=== PATIENT | male | born 1940 | race Caucasian/White ===

== ENCOUNTER → 2017-01-27 | Outpatient (CLI) | payer OTHER, MEDICARE ==
[~2017-01-27] MED LIST: GADOBUTROL 10 ML VIAL IVP ONE
== END ==
LOC: FIMAGING 14:43
PROVIDERS: ATTEND Otolaryngology
DX: H91.92 Unspecified hearing loss, left ear (principal); Z85.238 Personal history of other malignant neoplasm of thymus
CPT/HCPCS: 70553; 71020; A9585

== ENCOUNTER 2017-01-29 19:25 | Emergency (ER) | payer OTHER, MEDICARE ==
--- NOTE | 2017-01-29 20:05 | EDPHY ---
H & P Smoking Status: Never smoked Time Seen by Provider: 01/29/17 19:46 HPI/ROS: CHIEF COMPLAINT: Right thumb laceration HISTORY OF PRESENT ILLNESS: 76-year-old male with up-to-date tetanus arrives via private vehicle, right-hand dominant, complaining of acute right thumb proximal phalanx laceration when a glass broke in his hand. 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 Appears to be in no acute distress. 2) HEAD: Normocephalic 3) HEENT: sclera anicteric 4) LUNGS: Breathing comfortably. 5) SKIN: on the right thumb proximal phalanx he has a 2.5 cm well-demarcated laceration 6) MUSCULOSKELETAL: Flexor extensor abduction abduction intact no deficits 7) NEUROLOGIC: Full sensation two-point discrimination intact (JaceWill Linda) Constitutional: Initial Vital Signs Temperature (C) 36.6 C 01/29/17 19:34 Heart Rate 100 01/29/17 19:34 Respiratory Rate 20 01/29/17 19:34 Blood Pressure 166/109 H 01/29/17 19:34 O2 Sat (%) 99 01/29/17 19:34 O2 Delivery Mode Room Air Allergies/Adverse Reactions: No Known Allergies Allergy (Unverified 01/29/17 19:38) Home Medications: Medication Instructions Recorded Aspirin 81mg (*) 01/29/17 Losartan Potassium 01/29/17 MDM/Departure - MDM Procedures: Procedure: Laceration repair. I explained the indications, risks and benefits for both laceration repair and anesthetic administration. Verbal consent was obtained from the patient and parent. The laceration on the location was anesthetized using 0.5% bupivicaine without epinephrine digital nerve block. After anesthetic administered the patient was observed for a period of time and had no apparent adverse effects. The wound was cleaned, prepped, draped in normal sterile fashion and explored to its base. No foreign body seen, no foreign bodies palpated. There were no deep structures involved. No tendon injury was identified. The wound was repaired with 7 simple interrupted 5 O Ethilon sutures . The wound repair was simplecomplex. The procedure was performed by myself. Patient has been informed that scarring will occur, although efforts have been made to minimize this. Procedure: Splint A Velcro thumb spica splint was applied by ER driver license technician. After application of the splint I returned and re-examined the patient. The splint was adequately immobilizing the joint and distal to the splint the patient's circulation and sensation were intact. Patient shows no signs of compartment syndrome. Was given orthopedic precautions. (Will Mccormick) ED Course/Re-evaluation: I reviewed this patient's x-rays with him. 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 I have referred the patient to [facility] hand surgery follow-up. Care of patient under supervision of secondary supervising physician Dr Rodriges . (Will Mccormick) The patient was evaluated and managed by the physician's general office assistant. My cosignature indicates that I reviewed the chart and I agree with the findings and plan of care as documented. I am the secondary supervising physician. ( Jo Rodriges) - Depart Disposition: Home, Routine, Self-Care Clinical Impression: Laceration of thumb Qualifiers: Encounter type: initial encounter Damage to nail status: without damage Foreign body presence: without foreign body Laterality: right Qualified Code(s) : S61.011A - Laceration without foreign body of right thumb without damage to nail, initial encounter Condition: Good Instructions: Care For Your Stitches (ED), Laceration (ED) Referrals: Guero Posadas MD [Medical Doctor] - 01/31/17 (You may follow up with Dr. Guero Posadas or Dr. Lee Ann Fenton both of whom are hand surgeons) Corbin Fenton MD [Medical Doctor] - 01/31/17
[2017-01-29 21:09] VITALS: BP 160/110; PULSE 90; RESP 16; TEMP 97.7; O2SAT 98
== END 2017-01-29 21:09 | disposition home or self-care (01) ==
PROC: 0HQFXZZ Repair Right Hand Skin, External Approach (ICD-10-PCS; principal; 2017-01-29)
DX: S61.011A Laceration without foreign body of right thumb without damage to nail, initial encounter (principal); W25.XXXA Contact with sharp glass, initial encounter
CPT/HCPCS: 12001; 73140; 99283; L3807

== ENCOUNTER 2017-02-07 12:38 | Day surgery (SDC) | payer OTHER, MEDICARE ==
[2017-02-07] MEDS ORDERED: LIDOCAINE 1% 2 ML INJ ONE (12:57)
[2017-02-07] MEDS ORDERED: LIDOCAINE 1% 2 ML INJ ID PRN (13:03)
[2017-02-07] MEDS ORDERED: LR 1,000 ML IV ONE (13:03)
[2017-02-07 13:12] VITALS: PULSE 92
[2017-02-07] MEDS ORDERED: ceFAZolin 2 GM/SWFI 2 GM/20 ML SYR IVP ONE (13:20)
--- NOTE | 2017-02-07 13:43 | PDANEPAE ---
ANE History of Present Illness Laceration right thumb with digital nerve injury ANE Past Medical History - Cardiovascular History Hx Hypertension: Yes Hx Arrhythmias: No Hx Chest Pain: No Hx Coronary Artery / Peripheral Vascular Disease: No Hx CHF / Valvular Disease: No Hx Palpitations: No - Pulmonary History Hx COPD: No Hx Asthma/Reactive Airway Disease: No Hx Recent Upper Respiratory Infection: No Hx Oxygen in Use at Home: No Hx Sleep Apnea: No Sleep Apnea Screening Result - Last Documented: Positive Pulmonary History Comment: rosalind triggers only - Neurologic History Hx Cerebrovascular Accident: No Hx Seizures: No Hx Dementia: No - Endocrine History Hx Diabetes: No - Renal History Hx Renal Disorders: No - Liver History Hx Hepatic Disorders: No - Neurological & Psychiatric Hx Hx Neurological and Psychiatric Disorders: No - Cancer History Hx Cancer: Yes Cancer History Comment: thymoma with thyectomy surgery only - Congenital Disorder History Hx Congenital Disorders: No - GI History Hx Gastrointestinal Disorders: No - Other Health History Other Health History: wears glasses. tiny rash on left hand - Chronic Pain History Chronic Pain: No - Surgical History Prior Surgeries: 07/10/2007 thymectomy. 1979 hemmorhoidectomy. 1949 tonsillectomy. ANE Review of Systems Review of Systems: - Exercise capacity METS (RN): 4 METS ANE Patient History - Allergies Allergies/Adverse Reactions: No Known Allergies Allergy (Verified 02/04/17 14:46) - Home Medications Home medications: home medication list seen and reviewed Home Medications: Aspirin 81mg (*) 01/29/17 [Last Taken 02/02/17] Losartan Potassium 01/29/17 [Last Taken 02/07/17 05:00] Herbals/Supplements -Info Only 02/04/17 [Last Taken 02/02/17] - NPO status NPO Since - Liquids (Date): 02/06/17 NPO Since - Liquids (Time): 00:20 NPO Since - Solids (Date): 02/06/17 NPO Since - Solids (Time): 18:30 - Smoking Hx Smoking Status: Never smoked - Family Anes Hx Family Hx Anesthesia Complications: none ANE Labs/Vital Signs - Vital Signs Blood Pressure: 116/84 Heart Rate: 92 Respiratory Rate: 20 O2 Sat (%): 95 Height: 180.34 cm Weight: 83.007 kg ANE Physical Exam - Airway Neck exam: FROM Mallampati Score: Class 2 Mouth exam: normal dental/mouth exam - Pulmonary Pulmonary: no respiratory distress - Cardiovascular Cardiovascular: regular rate and rhythym - ASA Status ASA Status: II ANE Anesthesia Plan Anesthesia Plan: GA w LMA
[2017-02-07] MEDS ORDERED: BUPIVACAINE 0.5% 30 ML SDV ONE (13:48)
[2017-02-07] MEDS ORDERED: fentaNYL 100 MCG/2 ML INJ ONE ×2 (13:50→15:34)
[2017-02-07] MEDS ORDERED: LIDOCAINE 2% 5 ML SDV ONE (13:50)
[2017-02-07] MEDS ORDERED: PROPOFOL 200 MG/20 ML VIAL ONE ×2 (13:51→14:33)
[2017-02-07] MEDS ORDERED: LIDOCAINE 2% JELLY 5 ML TUBE ONE (13:52)
[2017-02-07] MEDS ORDERED: DEXAMETHASONE 4 MG/ML VIAL ONE (14:10)
[2017-02-07] MEDS ORDERED: ONDANSETRON 4 MG/2 ML VIAL ONE (14:10)
[2017-02-07] MEDS ORDERED: NALOXONE HCL 0.4 MG/ML INJ IVP PRN (14:22)
[2017-02-07] MEDS ORDERED: ONDANSETRON 4 MG/2 ML VIAL IVP PRN (14:22)
[2017-02-07] MEDS ORDERED: HYDROmorphONE/DILAUDID 1 MG/ML INJ IVP PRN (14:22)
[2017-02-07] MEDS ORDERED: PROMETHAZINE HCL 25 MG/ML INJ IVP PRN (14:22)
[2017-02-07] MEDS ORDERED: fentaNYL 100 MCG/2 ML INJ IVP PRN (14:22)
[2017-02-07] MEDS ORDERED: PHENYLEPHRINE HCL 100 MCG/ML SYR ONE (15:02)
--- NOTE | 2017-02-07 16:14 | POSTANESTH ---
Post Anesthetic Evaluation Cardiovascular Status: Normal, Stable Respiratory Status: Normal, Stable Level of Consciousness/Mental Status: Can Participate in Eval Pain Control: Adequate, Prn Tx Ordered Nausea/Vomiting Control: Adequate, Prn Tx Ordered Complications Possibly Related to Anesthesia: None Noted
[2017-02-07 17:24] VITALS: O2SAT 95
[2017-02-07 17:33] VITALS: RESP 20; TEMP 97.5
[2017-02-07 17:49] VITALS: BP 133/78
--- NOTE | 2017-02-08 03:47 | GOP ---
[f rep st] OPERATIVE REPORT DATE OF OPERATION: 02/07/2017 SURGEON: Corbin Fenton MD PREOPERATIVE DIAGNOSIS: Right thumb laceration and possible radial digital nerve injury. POSTOPERATIVE DIAGNOSIS: Right thumb radial digital nerve complete laceration. PROCEDURE PERFORMED: Right thumb radial digital nerve connector-assisted repair with a synthetic con duit (Exogen 2 x 10 mm). FINDINGS: ESTIMATED BLOOD LOSS: 5 cc. DESCRIPTION OF PROCEDURE: Patient was seen in the preoperative holding area. Consent was signed and he was given the opportunity to ask any more questions. All of his questions were answered. The jose esparza was then transferred to the operating room suite. Care was taken to transfer the patient from the [place] to the operating room table. Care was taken to pad all bony prominences on the operating room table prior to induction of anesthesia. General anesthesia was induced by the anesthesia team. Timeout was called, including surgical and anesthesia teams, confirming the surgical site and proced ure to be performed. The right upper extremity was prepped and draped in the usual sterile fashion. An Esmarch was used to exsanguinate the right upper extremity. Tourniquet was inflated to 250 mmHg. He has a prior laceration which was about 2.5 cm long over the volar aspect of P1 over his thumb. It was extended proximally and distally to visualize the contents. The radial neurovascular bundle was identified. There was found a complete laceration of the radial digital nerve, a partial laceration of the artery. The ulnar neurovascular bundle was found to be intact after it was explored. I thus decided to proceed to repair. The ends of the nerve were trimmed sharply with a fresh 15-blade. The tourniquet was let down. We v isualized the nerve with loupe magnification. There were bleeding fascicles on both ends. At this p oint, a was placed. The microscope was brought in. The ends of the nerve were cleaned up . The connector was placed over the distal end of the nerve. The nerves were reapproximated. There was no tension. The 2 ends were reapproximated with 9-0 nylon with 2 sutures in an epineural stitch . With the thumb in full extension, there was minimal tension. At this point, the connector was then slid over the anastomosis site. The connector had to be slight ly vented to allow it to slide over the proximal end, which was slightly larger. At this point, 2 de tensioning sutures were placed between the nerve and the connector. This created a nice repair. Josh rniquet was let down. The thumb was well perfused. All bleeding was controlled. The skin was close d with 4-0 nylon. Sterile dressing was applied. The patient tolerated the procedure well, was taken to the PACU in stable condition. INDICATIONS FOR PROCEDURE: The patient is a 76-year-old male, who came to my office last week after lacerating his thumb the prior weekend on a wine glass. He was seen at the ER. The wound was irriga casandra and closed. On examination, he complained of numbness in the radial aspect of his thumb, had los s of 2-point at the radial aspect, which was concerning for a radial digital nerve injury of the thum b, and he was thus indicated for wound exploration and possible repair. We discussed the risks and b enefits of operative versus nonoperative treatment. Risks of operative treatment include pain, bleed ing, infection, persistent numbness, neuroma formation, need for further surgeries, damage to surroun ding structures. He understood the risks and wished to proceed. POSTOPERATIVE CONDITION: Stable. POSTOPERATIVE PLAN: The patient will follow up in clinic in 10-14 days for wound check. Discussed w ith him that he may use the thumb. He is encouraged to move the thumb. He is not allowed strenuous gripping or lifting. I did also discuss with him that nerve repair, he may not see recovery for a fe w months, and there is a potential for minimal recovery with nerve repairs. He understood. /[id number]/MODL
== END 2017-02-07 17:55 | disposition home or self-care (01) ==
LOC: FSGY 12:38
PROVIDERS: ATTEND Orthopaedic Surgery Hand Surgery
PROC: 01U60JZ Supplement Radial Nerve with Synthetic Substitute, Open Approach (ICD-10-PCS; principal; 2017-02-07 13:57)
DX: S64.31XA Injury of digital nerve of right thumb, initial encounter (principal); S61.011D Laceration without foreign body of right thumb without damage to nail, subsequent encounter; W25.XXXD Contact with sharp glass, subsequent encounter
CPT/HCPCS: C1763; J0690; J1100; J2370; J2405; J2704; J3010

== ENCOUNTER 2017-11-06 12:36 | Observation (INO) | payer OTHER, MEDICARE ==
[2017-11-06 13:26] LABS: PLATELET COUNT 250 10^3/uL (150-400)
--- NOTE | 2017-11-06 14:05 | EDPHY ---
H & P Stated Complaint: R sided rib pain w/inhalation and lying down Time Seen by Provider: 11/06/17 13:35 HPI/ROS: CHIEF COMPLAINT: Right-sided chest pain HISTORY OF PRESENT ILLNESS: 77-year-old male with history of pulmonary embolism presents with right-sided chest pain. Onset of right-sided chest pain yesterday evening. The pain is moderate and increases with deep inspiration and with supine positioning. No change with exertion. No shortness of breath or other associated symptoms. Similar to prior pulmonary embolism in 2007. Previously on Coumadin, now on aspirin. No recent trauma or prolonged travel. REVIEW OF SYSTEMS: complete 10 point ROS negative except at noted in the HPI - Personal History Current Tetanus Diphtheria and Acellular Pertussis (TDAP): Yes - Medical/Surgical History Hx Asthma: No Hx Chronic Respiratory Disease: No Hx Diabetes: No Hx Cardiac Disease: No Hx Renal Disease: No Hx Cirrhosis: No Hx Alcoholism: No Hx HIV/AIDS: No Hx Splenectomy or Spleen Trauma: No Other PMH: hypertension, thyoma ca - surg, tonsillectomy. PE R lung 2007 - Social History Smoking Status: Never smoked Alcohol Use: Sober Additional Social History: - Physical Exam Exam: General Appearance: Alert, pleasant Eyes: Pupils equal and round, no conjunctival pallor or injection ENT, Mouth: Mucous membranes moist Neck: Normal inspection Respiratory: Normal inspection, Lungs are clear to auscultation Cardiovascular: Regular rate and rhythm Gastrointestinal: Abdomen is soft and nontender Neurological: A&O, nonfocal exam Skin: Warm and dry, no rash Extremities: Nontender, no pedal edema Psychiatric: Mood and affect normal Constitutional: Initial Vital Signs Temperature (C) 37.3 C 11/06/17 12:37 Heart Rate 84 11/06/17 12:37 Respiratory Rate 18 11/06/17 12:37 Blood Pressure 155/80 H 11/06/17 12:37 O2 Sat (%) 97 11/06/17 12:37 O2 Delivery Mode Room Air,Trach Collar Allergies/Adverse Reactions: No Known Allergies Allergy (Verified 11/06/17 12:36) Home Medications: Medication Instructions Recorded Aspirin [Aspirin 81mg (*)] 81 mg PO DAILY 11/06/17 Cholecalciferol Vit D3 [Vitamin D3 1,000 units PO DAILY 11/06/17 (*)] Losartan Potassium 100 mg PO DAILY 11/06/17 Multivitamins [Multivitamin (*)] 1 each PO DAILY 11/06/17 [place]-3 Fatty Acids [Fish Oil 1000 1,000 mg PO DAILY 11/06/17 mg (*)] Tears/Dextran 70/Hypromellose 1 drop EACHEYE Q2H PRN 11/06/17 [Natural Balance Tears (*)] Medical Decision Making - Diagnostics EKG Interpretation: EKG interpreted by me reveals normal sinus rhythm, rate 78, no ST or T segment changes. Interpretation: Normal EKG Imaging Results: Imaging Impressions Chest X-Ray 11/06/17 12:55 Impression: Suspect early right middle lobe pneumonia. Chest/Thorax CTA 11/06/17 13:54 Impression: 1. Positive pulmonary thromboemboli right middle lobe, small volume. 2. Right middle lobe pulmonary infarct. 3. Coronary atherosclerosis. 4. No aortic aneurysm or dissection. 5. Small hiatal hernia. Findings and recommendations discussed with Emergency Department physician, AIMEE CHOU at 15:13 hour, 11/06/2017. Final report concurs with initial preliminary interpretation. A test result has been communicated to a licensed care provider and documented in the [employer] Critical Result system on 11/06/2017 15:13, Message ID [id number]. ED Course/Re-evaluation: This patient presents with pleuritic right-sided chest pain, most concerning for acute pulmonary embolism, in patient with previous unprovoked pulmonary embolism. Stat EKG reveals no evidence of ischemia or dysrhythmia. Clinical history is not typical of acute coronary syndrome and initial troponin is normal. Chest x-ray is unremarkable. D-dimer is elevated. CT pulmonary angiogram reveals a small volume right middle lobe pulmonary embolism and pulmonary infarct. Results d/w pt and his . The hospitalist service was consulted for admission. Lovenox 80 mg subcu given. Differential Diagnosis: Differential diagnosis includes though it is not limited to pneumonia, pneumothorax, pulmonary embolism, aortic dissection, pericarditis, acute coronary syndrome. - Data Points Laboratory Results: Laboratory Results 11/06/17 13:05 11/06/17 13:05 11/06/17 11/06/17 11/06/17 13:09 13:05 13:05 WBC RBC Hgb Hct MCV MCH MCHC RDW Plt Count MPV Neut % (Auto) Lymph % (Auto) [place] % (Auto) Eos % (Auto) Baso % (Auto) Nucleat RBC Rel Count Absolute Neuts (auto) Absolute Lymphs (auto) Absolute Monos (auto) Absolute Eos (auto) Absolute Basos (auto) Absolute Nucleated RBC Immature Gran % Immature Gran # D-Dimer 2.16 ug/mLFEU H ug/mLFEU (0.00-0.50) Sodium 139 mEq/L mEq/L (135-145) Potassium 4.2 mEq/L mEq/L (3.3-5.0) Chloride 106 mEq/L mEq/L (97-110) Carbon Dioxide 24 mEq/l mEq/l (22-31) Anion Gap 9 mEq/L mEq/L (8-16) BUN 25 mg/dL H mg/dL (7-23) Creatinine 1.0 mg/dL mg/dL (0.7-1.3) Estimated GFR > 60 Glucose 96 mg/dL mg/dL (70-100) Calcium 9.1 mg/dL mg/dL (8.5-10.4) Total Bilirubin 0.5 mg/dL mg/dL (0.1-1.4) AST 24 IU/L IU/L (17-59) ALT 45 IU/L IU/L (21-72) Alkaline Phosphatase 78 IU/L IU/L (38-126) POC Troponin I 0.01 ng/mL ng/mL (0.00-0.08) Total Protein 6.2 g/dL L g/dL (6.3-8.2) Albumin 3.9 g/dL g/dL (3.5-5.0) 11/06/17 13:05 WBC 10.20 10^3/uL H 10^3/uL (3.80-9.50) RBC 4.27 10^6/uL L 10^6/uL (4.40-6.38) Hgb 14.5 g/dL g/dL (13.7-17.5) Hct 41.8 % % (40.0-51.0) MCV 97.9 fL fL (81.5-99.8) MCH 34.0 pg pg (27.9-34.1) MCHC 34.7 g/dL g/dL (32.4-36.7) RDW 13.5 % % (11.5-15.2) Plt Count 250 10^3/uL 10^3/uL (150-400) MPV 10.3 fL fL (8.7-11.7) Neut % (Auto) 80.1 % H % (39.3-74.2) Lymph % (Auto) 7.0 % L % (15.0-45.0) [place] % (Auto) 11.4 % % (4.5-13.0) Eos % (Auto) 0.6 % % (0.6-7.6) Baso % (Auto) 0.5 % % (0.3-1.7) Nucleat RBC Rel Count 0.0 % % (0.0-0.2) Absolute Neuts (auto) 8.18 10^3/uL H 10^3/uL (1.70-6.50) Absolute Lymphs (auto) 0.71 10^3/uL L 10^3/uL (1.00-3.00) Absolute Monos (auto) 1.16 10^3/uL H 10^3/uL (0.30-0.80) Absolute Eos (auto) 0.06 10^3/uL 10^3/uL (0.03-0.40) Absolute Basos (auto) 0.05 10^3/uL 10^3/uL (0.02-0.10) Absolute Nucleated RBC 0.00 10^3/uL 10^3/uL (0-0.01) Immature Gran % 0.4 % % (0.0-1.1) Immature Gran # 0.04 10^3/uL 10^3/uL (0.00-0.10) D-Dimer Sodium Potassium Chloride Carbon Dioxide Anion Gap BUN Creatinine Estimated GFR Glucose Calcium Total Bilirubin AST ALT Alkaline Phosphatase POC Troponin I Total Protein Albumin Medications Given: Discontinued Medications Enoxaparin Sodium (Lovenox) 80 mg SC EDNOW ONE Stop: 11/06/17 15:14 Last Admin: 11/06/17 15:39 Dose: 80 mg Point of Care Test Results: Chemistry 11/06/17 13:09 POC Troponin I 0.01 ng/mL ng/mL (0.00-0.08) Departure - Departure Disposition: [facility] Clinical Impression: Pulmonary embolism and infarction Condition: Fair
[2017-11-06] MEDS ORDERED: IOPAMIDOL (ISOVUE 370) 100 ML BTL IV ONE (14:21)
[2017-11-06] MEDS ORDERED: ENOXAPARIN 80 MG/0.8 ML SYR SC ONE (15:13)
[2017-11-06] MEDS ORDERED: ONDANSETRON 4 MG/2 ML VIAL IVP PRN (15:21)
[2017-11-06] MEDS ORDERED: ONDANSETRON DISINTEGRATING 4 MG TAB PO PRN (15:21)
[2017-11-06] MEDS ORDERED: ACETAMINOPHEN 325 MG TAB PO PRN (15:22)
[2017-11-06] MEDS ORDERED: HYDROCODONE/APAP 5/325 TAB PO PRN (15:22)
[2017-11-06] MEDS ORDERED: HYDROmorphONE/DILAUDID 1 MG/ML INJ IVP PRN (15:22)
[2017-11-06] MEDS ORDERED: oxyCODONE IR 5 MG TAB PO PRN (15:22)
[2017-11-06] MEDS ORDERED: TEARS/DEXTRAN 70/HYPROMELLOSE 15 ML OPHT.BTL EACHEYE PRN (15:37)
--- NOTE | 2017-11-06 16:06 | GHP ---
[f rep st] HISTORY AND PHYSICAL DATE OF ADMISSION: 11/06/2017 CHIEF COMPLAINT: Chest pain. HISTORY OF PRESENT ILLNESS: This is a 77-year-old male with a history of a PE who presents with ches t pain. This started around bedtime last night, was worse today. It is moderate in intensity, right -sided, sharp in nature, and pleuritic. It feels similar to his previous PE. He had surgery last No vember, nothing since. He has not been more immobile. He has not had any recent travel. He tells m ishaan his last colonoscopy was in 2010. PAST MEDICAL/SURGICAL HISTORY: 1. PE in 2007, for which he was on anticoagulation for 6 months. 2. Hypertension. 3. Thymoma, status post thymectomy which was found incidentally along with his PE in 2007. 4. Hyperlipidemia. 5. Hemorrhoids, hemorrhoidectomy. 6. Kidney stone. 7. History of PMR. 8. Sciatica. MEDICATIONS: Please see medication reconciliation. ALLERGIES: No known drug allergies. FAMILY HISTORY: His brother of a blood clot. SOCIAL HISTORY: Drinks 1-2 glasses of wine a day. He does not smoke. REVIEW OF SYSTEMS: A 10-point review of systems is conducted and is negative except per HPI. PHYSICAL EXAM: VITAL SIGNS: Blood pressure 155/80, heart rate 84, respiration rate 18, saturating 9 7% on room air. Temperature is 37.3. GENERAL: Mr. Hampton is a pleasant man who is resting comf ortably. No acute distress. HEENT: Shows him to be normocephalic, atraumatic. CARDIOVASCULAR: Re gular rate and rhythm. No murmurs, rubs, or gallops. PULMONARY: Lungs clear to auscultation bilate rally. ABDOMEN: Soft, nontender, nondistended. SKIN: Shows no rash. : No Page. NEUROLOGIC: Shows him to be alert and oriented x3. He is moving all extremities. PSYCHIATRIC: Shows normal mo od and affect. EXTREMITIES: Shows no lower extremity edema. LABS: White count is 10.2, hemoglobin is 14, D-dimer is 2.1. Basic metabolic panel is normal. Prot ein is 6.2. DATA: 1. I discussed this with Dr. Dimas. Will admit to PCU. 2. I personally viewed and interpreted his chest x-ray. This shows suspected possible infiltrate wh ich may be infarct. 3. EKG, which I personally viewed and interpreted, shows left axis deviation, sinus rhythm. T-wave inversion in lead 3. IMPRESSION AND PLAN: 1. Acute pulmonary embolus: This is a second episode. We will place him on Lovenox overnight. Cou ld transition him to oral tomorrow. He is relatively low risk for bleeding. His pain is relatively well controlled. He is hemodynamically stable. 2. We will need to review final read on the CT angiogram as this is not available currently. 3. Mild leukocytosis: Suspect that this is stress response in the setting of a PE. We will recheck tomorrow morning. 4. Hypertension: Losartan. 5. Hyperlipidemia: I do not believe he is on any medications other than fish oil for this. 6. Venous thromboembolism risk is high, he will be on full dose Lovenox. 7. Code status is full. /[id number]/MODL
--- NOTE | 2017-11-06 17:59 | CPEKG ---
Test Reason : OPEN Blood Pressure : / mmHG Vent. Rate : 078 BPM Atrial Rate : 077 BPM P-R Int : 150 ms QRS Dur : 101 ms QT Int : 369 ms P-R-T Axes : 039 -27 007 degrees QTc Int : 421 ms Sinus rhythm Borderline left axis deviation Confirmed by Antonieta Dimas ([id number]) on 11/06/2017 5:59:26 PM Referred By: Confirmed By:Antonieta Dimas
[2017-11-06] MEDS ORDERED: FUROSEMIDE 20 MG/2 ML VIAL IVP ONE (19:45)
[2017-11-06] MEDS: ENOXAPARIN 80 MG/0.8 ML SYR SC SCH (22:30)
[2017-11-07 03:57] LABS: PLATELET COUNT 226 10^3/uL (150-400)
[2017-11-07] MEDS ORDERED: CHOLECALCIFEROL VIT D3 1,000 UNITS TAB PO SCH (09:00)
[2017-11-07] MEDS ORDERED: LOSARTAN POTASSIUM 50 MG TAB PO SCH (09:00)
[2017-11-07 09:02] VITALS: BP 132/67
[2017-11-07] MEDS: ENOXAPARIN 80 MG/0.8 ML SYR SC SCH (09:41)
--- NOTE | 2017-11-07 10:04 | PDDCSUM ---
Discharge Summary Discharge Summary: DISCHARGE DIAGNOSES: * acute pulmonary embolism, small volume, with small right pulmonary infarct * stable hemodynamics without hypoxemia * prior history of pulmonary embolism PROCEDURES: CT scan of chest HOSPITAL COURSE SUMMARY: This patient presented with typical symptoms and was found to have his second episode of pulmonary embolism. It was unprovoked. He was hemodynamically stable without hypoxemia. There was no finding to suggest pulmonary hypertension. He had a small pulmonary infarct. He was treated with lovenox and observed overnight and did quite well. Ambulating in [place] with no difficulty, no bleeding issues. The options of lovenox/coumadin/monitoring vs NOAC were discussed with all the detailed advantages and disadvantages of each. He chose NOAC. He was discharged with a prescription for Eliquis. PENDING TEST RESULTS: None MEDICATION CHANGES: Eliquis 10 mg twice daily for 6 days, followed by 5 mg daily indefinitely The patient is given a prescription for Coumadin in case the Eliquis becomes too expensive for him after the 1st month FOLLOW-UP PLAN: In 1 week with his primary care provider Greater than 35 minutes bedside and care coordination time today
[2017-11-07] MEDS ORDERED: PROTOCOL MAGNESIUM 1 DOSE IV PRN (11:13)
[2017-11-07] MEDS ORDERED: PROTOCOL POTASSIUM 1 DOSE MISC PRN (11:13)
== END 2017-11-07 12:03 | disposition home or self-care (01) ==
LOC: F2W 16:00
PROVIDERS: ADMIT Student in an Organized Health Care Education/Training Program; ATTEND Student in an Organized Health Care Education/Training Program
DX: I26.99 Other pulmonary embolism without acute cor pulmonale (principal); I25.10 Atherosclerotic heart disease of native coronary artery without angina pectoris; K44.9 Diaphragmatic hernia without obstruction or gangrene; E78.5 Hyperlipidemia, unspecified; M54.30 Sciatica, unspecified side; Z79.01 Long term (current) use of anticoagulants
CPT/HCPCS: 71046; 71275; 93005; 96372; 99285; G0378; J1650; Q9967; 84484-PO; J1940